=== PATIENT | male | born 2000 | race Caucasian/White ===

== ENCOUNTER 2021-09-24 08:08 | Emergency (ER) | payer MEDICARE, OTHER ==
[2021-09-24 08:54] LABS: HEMOGLOBIN 14.9 gm/dl (14.0-17.5); RED BLOOD COUNT 4.95 M/UL (4.20-5.50); WHITE BLOOD COUNT 23.3 K/UL (4.5-11.0)
[2021-09-24 09:24] LABS: BUN/CREATININE RATIO 14 (0-10)
[2021-09-24] MEDS ORDERED: ZOFRAN ODT 4 MG4 MG SL (12:31)
== END 2021-09-24 12:50 | disposition home or self-care (01) ==
LOC: ER1 08:08
PROVIDERS: Emergency Medicine
DX: K80.70 Calculus of gallbladder and bile duct without cholecystitis without obstruction (principal); B34.9 Viral infection, unspecified
CPT/HCPCS: 76705; 80053; 81001; 83690; 85025; 96374; 96375; 96376; 99284; J2270; J2405

== ENCOUNTER → 2021-10-05 | Day surgery (SDC) | payer MEDICARE, OTHER ==
[~2021-10-05] MED LIST: COLACE100 MG PO; HYDROCODON-ACE1 EAC4 PO; ZOFRAN ODT 4 MG4 MG SL
== END | disposition home or self-care (01) ==
LOC: OR 10-02 07:30
DX: K80.12 Calculus of gallbladder with acute and chronic cholecystitis without obstruction (principal)
CPT/HCPCS: J0690; J1100; J1170; J1885; J2001; J2250; J2405; J2704; J3010